=== PATIENT | female | born 1955 | race Caucasian/White ===

== ENCOUNTER 2023-02-16 10:41 | Day surgery (SDC) | payer OTHER, BC ==
[2023-02-11 16:58] VITALS: BMI 36.3
[2023-02-16] MEDS ORDERED: PROPOFOL 20 ML ONE (12:11)
[2023-02-16 13:02] VITALS: RESP 18; TEMP 97
[2023-02-16 13:16] VITALS: BP 132/71; PULSE 82
== END 2023-02-16 13:47 | disposition home or self-care (01) ==
LOC: FASU-ENDO 10:41
PROVIDERS: ATTEND Internal Medicine Gastroenterology
PROC: 0DBL8ZX Excision of Transverse Colon, Via Natural or Artificial Opening Endoscopic, Diagnostic (ICD-10-PCS; 2023-02-16)
PROC: 0DBK8ZX Excision of Ascending Colon, Via Natural or Artificial Opening Endoscopic, Diagnostic (ICD-10-PCS; principal; 2023-02-16 11:43)
DX: Z12.11 Encounter for screening for malignant neoplasm of colon (principal); D12.2 Benign neoplasm of ascending colon; D12.3 Benign neoplasm of transverse colon
CPT/HCPCS: 88305-TC